=== PATIENT | male | born 1960 | race Caucasian/White ===

== ENCOUNTER → 2024-07-31 11:47 | Outpatient (REF) | payer BC, SELFPAY | LOC: DHSLP 11:47 | PROVIDERS: ATTENDING PHYSICIAN Internal Medicine Critical Care Medicine; FAMILY PHYSICIAN Student in an Organized Health Care Education/Training Program | DX: G47.33 Obstructive sleep apnea (adult) (pediatric) (principal) | CPT/HCPCS: 95800 ==

== ENCOUNTER → 2025-03-13 11:29 | Outpatient (REF) | payer BC, SELFPAY | LOC: HWRAD 11:29 | PROVIDERS: ATTENDING PHYSICIAN Physician Assistant Medical | DX: J06.9 Acute upper respiratory infection, unspecified (principal) | CPT/HCPCS: 71046 ==